=== PATIENT | male | born 1935 | race Caucasian/White ===

== ENCOUNTER 2022-09-16 14:37 | Inpatient (IN) ==
[2022-09-16] MEDS ORDERED: IOPAMIDOL 100 ML BOTTLE IV ONE (14:38)
--- NOTE | 2022-09-16 14:53 | Emergency Department Note ---
Abdominal Pain HPI General Chief Complaint: Abdominal Pain Stated Complaint: ab pain Time Seen by Provider: 09/16/22 14:42 Source: patient Mode of arrival: ambulatory Limitations: no limitations History of Present Illness HPI Narrative: Narrative: This is an 86-year-old male who presents to the emergency department for right upper quadrant abdominal pain. Patient states that the pain began about 1 AM. Patient states he is gotten this kind of pain before and it will usually last 15 to 20 minutes or he takes a bunch of Gaviscon and that will go away. This has not happened this time. He has also had nausea with it which she does not normally get. He states that it also is more over the right upper quadrant where normally its more in the middle of his upper abdomen. He states that he had ice cream at about 8:00 last night and his states that he had a peanut butter and jelly sandwich around 5 PM yesterday. He denies any vomiting or diarrhea. He states that he had a ultrasound many years ago where they told him he had "gravel in his gallbladder". Related Data Home Medications Medication Instructions Recorded Confirmed Saccharomyces boulardii [Daily PO BID 04/10/21 07/13/22 Probiotic (S. boulardii)] acetaminophen 650 mg 650 mg PO BID 04/10/21 07/13/22 tablet,extended release (Tylenol 8 Hour) cholecalciferol (vitamin D3) 25 25 mcg PO QDAY 04/10/21 07/13/22 mcg (1,000 unit) capsule cranberry extract 650 mg capsule 650 mg PO QDAY 04/10/21 07/13/22 multivitamin (Multiple Vitamins 1 tab PO QDAY 04/10/21 07/13/22 tablet) saw palmetto 450 mg capsule 450 mg PO QDAY 04/10/21 07/13/22 vit C-E-zinc spe-[id number]-[id number] PO QDAY 04/10/21 07/13/22 [Ocuvite Eye Health] calcium,magnesium,zinc,vitamin d3 PO BID 07/13/22 07/13/22 propylene glycol 0.6 % eye drops 1 drp ophthalmic (eye) QDAY PRN 07/13/22 07/13/22 (Systane Complete) Previous Rx's Medication Instructions Recorded fluticasone propionate 50 1 spray intranasal BID #16 grams 05/29/21 mcg/actuation nasal spray,suspension alendronate 70 mg tablet (Fosamax) 70 mg PO QWEEK #12 tabs 02/27/22 omeprazole 20 mg tablet,delayed 20 mg PO QDAY #90 tabs 03/08/22 release famotidine 40 mg tablet 40 mg PO BID #180 tabs 07/13/22 Allergies Allergy/AdvReac Type Severity Reaction Status Date / Time No Known Drug Allergies Allergy Verified 09/16/22 14:43 Review of Systems ROS ROS Narrative: Narrative: All systems ED: reviewed and negative except as stated. [facility] Narrative Patient History Narrative: Narrative: Medical/Surgical/Family History All Active Problems (Updated 09/16/22 @ 21:20 by Priya Parham PA-C) Acute cholecystitis (Acute) Elevated PSA (Chronic) Arthritis (Chronic) Acid reflux (Acute) Finger swelling (Acute) Foreign body (FB) in soft tissue (Acute) Hematuria (Acute) BPH (benign prostatic hyperplasia) (Chronic) Family history of prostate cancer (Chronic) Right shoulder pain (Acute) Bloating symptom (Acute) Medicare annual wellness visit, initial (Acute) SNHL (sensorineural hearing loss) (Acute) Full code status (Acute) Age related osteoporosis (Acute) Rising PSA level (Chronic) Medical History Acid reflux Age related osteoporosis Arthritis Bloating symptom Elevated PSA Foreign body (FB) in soft tissue Full code status Hematuria Medicare annual wellness visit, initial Right shoulder pain SNHL (sensorineural hearing loss) Surgical History History of bilateral knee replacement History of hernia repair Family History Mother Melanoma Sister Heart attack Social History Smoking Status: Never smoker Alcohol Intake Frequency: does not drink Substance Use: does not use Exam Narrative Narrative: Narrative: General Limitations: no limitations General appearance: Present alert, in no apparent distress, nontoxic and obese Head Head: Present atraumatic and normocephalic Eye Eye: Present normal appearance; Absent scleral icterus Chest Chest: Present symmetric chest wall rise Respiratory Respiratory: Absent respiratory distress Cardiovascular Cardiovascular: Present regular rate, normal rhythm and normal heart sounds Adbominal Abdominal: Present soft and tenderness (RUQ); Absent distention, guarding, rebound or rigidity Extremities Extremities: Present normal inspection and full ROM Neurological Neurological: Present alert, oriented X3 and normal gait Psychiatric Psychiatric: Present normal affect, normal mood and pleasant Skin Skin: Present warm (WNL) Course Vital Signs Vital signs: Vital Signs Temperature 97.6 F 09/16/22 14:40 Pulse Rate 64 09/16/22 14:40 Respiratory Rate 12 09/16/22 14:40 Blood Pressure 151/77 09/16/22 14:40 Pulse Oximetry (%) 93 09/16/22 14:40 Oxygen Delivery Method Room Air 09/16/22 14:40 Temperature 97.6 F 09/16/22 14:40 Pulse Rate 60 09/16/22 20:01 Respiratory Rate 24 H 09/16/22 19:10 Blood Pressure 110/63 09/16/22 20:31 Pulse Oximetry (%) 95 09/16/22 20:01 Oxygen Delivery Method Nasal Cannula 09/16/22 17:42 Oxygen Flow Rate (L/min) 2 09/16/22 17:42 [facility] MDM Narrative Medical decision making narrative: Narrative: This is an 86-year-old male who presents to the emergency department for evaluation of right upper quadrant pain. IV access was established for administration of fluids and medications. Labs were collected. His labs revealed a slightly elevated white blood cell count of 12.8 with a left shift. His lipase was 147, AST was 107, ALT 52, alk phos 117, direct bilirubin 0.4, lactic acid was elevated to 2.4. His troponin was less than 0.02 and his procalcitonin was 0.06 patient was then given a liter of fluids and an ultrasound was done. Ultrasound revealed cholelithiasis with some sludge but no signs of pericholecystic fluid or dilatation of the common bile duct. The gallbladder wall measured 3 mm in thickness. At this point I spoke with Dr. Myrick, who recommended a CT scan and that if that was okay he be more than happy to follow up with him in the office. I also did a repeat lactate at 1811 which increased to 3.6. Patient was given another liter of fluid and CT abdomen pelvis with contrast was done. This revealed multiple gallstones with gallbladder wall thickening pericholecystic edema suggestive of acute cholecystitis with question of a small volume of pericholecystic free fluid. There was no biliary duct dilatation or choledocholithiasis noted and the pancreas was unremarkable. A repeat of his lactate is pending. I respoke with Dr. Myrick who agreed to come in and evaluate the patient and discuss his options with him. Dr. Myrick met with the patient and will be admitting him to the hospital for a cholecystectomy. Sepsis Sepsis Identified: No Differential Diagnosis Differential Diagnosis: Cholecystitis, choledocholithiasis, pancreatitis, cholangitis, gastritis Medical Records Medical records reviewed: Yes I reviewed the patient's medical records. Lab Data Lab results reviewed: Yes I reviewed the patient's lab results. 09/16/22 15:20 Labs: Lab Results 09/16/22 09/16/22 09/16/22 Range/Units 15:20 15:20 15:20 WBC 12.8 H (4.5-11.0) K/mcL RBC 4.48 L (4.63-6.08) M/mcL Hgb 13.4 L (13.7-17.5) g/dL Hct 41.2 (40.1-51.0) % POC Hct (41-55) MCV 92.0 (80.0-100.0) fL MCH 29.9 (26.0-34.0) pg MCHC 32.5 (31.0-36.0) g/dL RDW 14.3 (11.5-14.5) % Plt Count 164 (140-440) K/mcL MPV 12.6 H (8.8-12.5) fL Immature Gran % (Auto) 0.5 (0.0-0.5) % Neut % (Auto) 90.0 H (38.0-78.0) % Lymph % (Auto) 4.8 L (15.5-49.0) % Pershing % (Auto) 4.5 (1.0-12.0) % Eos % (Auto) 0 (0.0-7.0) % Baso % (Auto) 0.2 (0.0-2.0) % Lymph # (Auto) 0.61 L (1.50-4.80) K/mcL Pershing # (Auto) 0.57 (0.10-0.90) K/mcL Eos # (Auto) 0 (0.00-0.70) K/mcL Baso # (Auto) 0.02 (0.00-0.30) K/mcL Immature Gran # 0.06 H (0.00-0.05) K/mcl Absolute Neutrophils 11.52 H (1.80-8.00) K/mcL POC VBG pH (7.32-7.42) POC VBG pCO2 at Temp (41-51) POC VBG pO2 (25-40) POC VBG HCO3 (24-28) POC VBG Total CO2 (25-29) POC Venous O2 Sat (40-70) POC VBG Base Excess (-2-2) VBG Lactic Acid (0.5-2) POC Sodium (133-145) POC Potassium (3.3-5.1) POC Chloride (96-108) POC Total CO2 (22-30) POC Anion Gap (8.0-16.0) POC BUN (6-20) POC Creatinine (0.6-1.2) POC Glucose (70-105) POC WB Ioniz Calcium (1.16-1.32) Total Bilirubin 0.8 (0.1-1.0) mg/dL Direct Bilirubin 0.4 H (<0.3) mg/dL AST 107 H (<40) U/L ALT 52 H (<40) U/L Alkaline Phosphatase 117 (39-117) U/L Total Protein 7.0 (5.9-8.4) gm/dL Albumin 3.8 (3.2-5.2) gm/dL Globulin 3.2 (2.2-3.7) gm/dL Lipase 147 H (7-60) U/L Procalcitonin 0.06 (<0.10) ng/mL POC Troponin I (0.00-0.08) 09/16/22 09/16/22 09/16/22 Range/Units 15:31 15:36 15:38 WBC (4.5-11.0) K/mcL RBC (4.63-6.08) M/mcL Hgb (13.7-17.5) g/dL Hct (40.1-51.0) % POC Hct 42.0 (41-55) MCV (80.0-100.0) fL MCH (26.0-34.0) pg MCHC (31.0-36.0) g/dL RDW (11.5-14.5) % Plt Count (140-440) K/mcL MPV (8.8-12.5) fL Immature Gran % (Auto) (0.0-0.5) % Neut % (Auto) (38.0-78.0) % Lymph % (Auto) (15.5-49.0) % Pershing % (Auto) (1.0-12.0) % Eos % (Auto) (0.0-7.0) % Baso % (Auto) (0.0-2.0) % Lymph # (Auto) (1.50-4.80) K/mcL Pershing # (Auto) (0.10-0.90) K/mcL Eos # (Auto) (0.00-0.70) K/mcL Baso # (Auto) (0.00-0.30) K/mcL Immature Gran # (0.00-0.05) K/mcl Absolute Neutrophils (1.80-8.00) K/mcL POC VBG pH 7.44 H (7.32-7.42) POC VBG pCO2 at Temp 33.7 L (41-51) POC VBG pO2 36 (25-40) POC VBG HCO3 22.7 L (24-28) POC VBG Total CO2 24.0 L (25-29) POC Venous O2 Sat 72.0 H (40-70) POC VBG Base Excess -1.0 (-2-2) VBG Lactic Acid 2.4 H (0.5-2) POC Sodium 138 (133-145) POC Potassium 3.9 (3.3-5.1) POC Chloride 101 (96-108) POC Total CO2 23.0 (22-30) POC Anion Gap 19.0 H (8.0-16.0) POC BUN 20 (6-20) POC Creatinine 0.8 (0.6-1.2) POC Glucose 147 H (70-105) POC WB Ioniz Calcium 1.13 L (1.16-1.32) Total Bilirubin (0.1-1.0) mg/dL Direct Bilirubin (<0.3) mg/dL AST (<40) U/L ALT (<40) U/L Alkaline Phosphatase (39-117) U/L Total Protein (5.9-8.4) gm/dL Albumin (3.2-5.2) gm/dL Globulin (2.2-3.7) gm/dL Lipase (7-60) U/L Procalcitonin (<0.10) ng/mL POC Troponin I < 0.02 (0.00-0.08) 09/16/22 Range/Units 18:12 WBC (4.5-11.0) K/mcL RBC (4.63-6.08) M/mcL Hgb (13.7-17.5) g/dL Hct (40.1-51.0) % POC Hct (41-55) MCV (80.0-100.0) fL MCH (26.0-34.0) pg MCHC (31.0-36.0) g/dL RDW (11.5-14.5) % Plt Count (140-440) K/mcL MPV (8.8-12.5) fL Immature Gran % (Auto) (0.0-0.5) % Neut % (Auto) (38.0-78.0) % Lymph % (Auto) (15.5-49.0) % Pershing % (Auto) (1.0-12.0) % Eos % (Auto) (0.0-7.0) % Baso % (Auto) (0.0-2.0) % Lymph # (Auto) (1.50-4.80) K/mcL Pershing # (Auto) (0.10-0.90) K/mcL Eos # (Auto) (0.00-0.70) K/mcL Baso # (Auto) (0.00-0.30) K/mcL Immature Gran # (0.00-0.05) K/mcl Absolute Neutrophils (1.80-8.00) K/mcL POC VBG pH 7.43 H (7.32-7.42) POC VBG pCO2 at Temp 30.9 L (41-51) POC VBG pO2 42 H (25-40) POC VBG HCO3 20.4 L (24-28) POC VBG Total CO2 21.0 L (25-29) POC Venous O2 Sat 80.0 H (40-70) POC VBG Base Excess -4.0 L (-2-2) VBG Lactic Acid 3.6 H (0.5-2) POC Sodium (133-145) POC Potassium (3.3-5.1) POC Chloride (96-108) POC Total CO2 (22-30) POC Anion Gap (8.0-16.0) POC BUN (6-20) POC Creatinine (0.6-1.2) POC Glucose (70-105) POC WB Ioniz Calcium (1.16-1.32) Total Bilirubin (0.1-1.0) mg/dL Direct Bilirubin (<0.3) mg/dL AST (<40) U/L ALT (<40) U/L Alkaline Phosphatase (39-117) U/L Total Protein (5.9-8.4) gm/dL Albumin (3.2-5.2) gm/dL Globulin (2.2-3.7) gm/dL Lipase (7-60) U/L Procalcitonin (<0.10) ng/mL POC Troponin I (0.00-0.08) Radiology Data Radiology results reviewed: Yes I reviewed the patient's radiology results. Radiology results narrative: [facility] NAME: Bryant Mesa [address] [place] [address] : 1935 [address] Service Date: 09/16/22 Report # [id number] [place] [address] Trino Garnett M.D. MR #: [id number] Ultrasound Report Signed Ordering Physician:Priya Parham PA-C Date of Service:09/16/22 Procedure(s):US abdomen limited History: Right upper quadrant pain FINDINGS: Patient was difficult to scan due to inability to hold her breath and moderate amount of bowel gas. The visualized portion liver is normal in size and homogeneous. There is no mass or evidence of fatty and fixation. Doppler shows normal blood flow in the hepatic and portal veins. The pancreas is obscured. The gallbladder contains numerous small stones and sludge. Most of stones appear noncalcified. There may be some small polyps as well. The wall measures 3 mm in thickness. The patient was nontender while scanning over the gallbladder. No pericholecystic fluid collection is present. Common bile duct is 6.2 mm which is is within normal limits. There is no mass is present. IMPRESSION: Cholelithiasis Priya Parham was called with the report. Interpreted and Authenticated by: Trino Garnett 09/16/22 24 28 Steam Oven Operator: <Electronically signed by Trino Garnett M.D. in OV> 09/16/22 1730 CC: Priya Parham PA-C; Trino Garnett M.D.; Anastacio Figueredo M.D.~ CT abdomen and pelvis with contrast revealed multiple gallstones gallbladder wall thickening and. Cholecystic edema suggestive suggestive of acute cholecystitis there is question of a small volume of pericholecystic free fluid no biliary duct dilatation or choledocholithiasis pancreas is unremarkable. EKG Data EKG #1: EKG attestation: Yes I reviewed and interpreted this EKG. EKG results narrative: with Dr. Pina EKG shows normal: sinus rhythm Rate: normal [place]/QRS: right axis deviation and RBBB Heart block present: RBBB ST segment elevation in: None ST segment depression in: None T wave inversions noted in: None QTc: normal When compared to previous EKG there are: previous EKG unavailable Interpretation: no acute changes Pulse Oximetry Data Pulse Ox %: 95 Interpretation: O2 saturation is 95% on room air. Patient does not show any signs of hypoxia. Discharge Plan Patient/Caregiver Discharge Instructions Pt seen by CAMPUS MANAGER/PA only: Yes Clinical Impression: Acute cholecystitis Patient Disposition: Xfer As Inpt ([facility]) Follow up with: Anastacio Figueredo MD [Primary Care Provider] - Prescriptions: No Action alendronate [Fosamax] 70 mg tablet 70 mg PO QWEEK Qty: 12 2RF omeprazole 20 mg tablet,delayed release (DR/EC) 20 mg PO QDAY Qty: 90 2RF Hold Instructions: Doctor's Order acetaminophen [Tylenol 8 Hour] 650 mg tablet extended release 650 mg PO BID multivitamin [Multiple Vitamins] Tablet 1 tab PO QDAY cholecalciferol (vitamin D3) 25 mcg (1,000 unit) capsule 25 mcg PO QDAY cranberry extract 650 mg capsule 650 mg PO QDAY Rx Instructions: administer with a meal Saccharomyces boulardii [Daily Probiotic (S. boulardii)] PO BID saw palmetto 450 mg capsule 450 mg PO QDAY Rx Instructions: give with food (meal/snack) vit C-E-zinc [id number] [Ocuvite Eye Health] PO QDAY Systane Complete 0.6 % drops 1 drp ophthalmic (eye) QDAY PRN calcium,magnesium,zinc,vitamin d3 PO BID famotidine 40 mg tablet 40 mg PO BID Qty: 180 1RF fluticasone propionate 50 mcg/actuation spray,suspension 1 spray intranasal BID Qty: 16 2RF Rx Instructions: administer into each nostril
[2022-09-16] MEDS ORDERED: morphine 2 MG/ML VIAL IV PRN (14:54)
[2022-09-16] MEDS ORDERED: 0.9 % SODIUM CHLORIDE 1,000 ML IV ONE ×2 (14:54→18:19)
[2022-09-16] MEDS ORDERED: ONDANSETRON 4 MG/2 ML VIAL IV ONE (14:54)
[2022-09-16 15:49] LABS: POC Calcium, Ionized 1.13 (1.16-1.32); POC Creatinine 0.8 (0.6-1.2); POC Potassium 3.9 (3.3-5.1)
[2022-09-16 15:53] LABS: Basophils # (Auto) 0.02 K/mcL (0.00-0.30); Basophils % (Auto) 0.2 % (0.0-2.0); Eosinophils # (Auto) 0 K/mcL (0.00-0.70); Eosinophils % (Auto) 0 % (0.0-7.0); Hematocrit 41.2 % (40.1-51.0); Hemoglobin 13.4 g/dL (13.7-17.5); Lymphocytes # (Auto) 0.61 K/mcL (1.50-4.80); Lymphocytes % (Auto) 4.8 % (15.5-49.0); Mean Corpuscular HGB Conc 32.5 g/dL (31.0-36.0); Mean Platelet Volume 12.6 fL (8.8-12.5); Monocytes # (Auto) 0.57 K/mcL (0.10-0.90); Monocytes % (Auto) 4.5 % (1.0-12.0); Platelet Count 164 K/mcL (140-440); RBC 4.48 M/mcL (4.63-6.08); Red Cell Distribution Width 14.3 % (11.5-14.5); WBC 12.8 K/mcL (4.5-11.0)
[2022-09-16 16:18] LABS: ALT/SGPT 52 U/L (<40); AST/SGOT 107 U/L (<40); Albumin 3.8 gm/dL (3.2-5.2); Alkaline Phosphatase 117 U/L (39-117); Bilirubin,Direct 0.4 mg/dL (<0.3); Bilirubin,Total 0.8 mg/dL (0.1-1.0); Globulin 3.2 gm/dL (2.2-3.7)
--- NOTE | 2022-09-16 17:34 | Ultrasound Report ---
History: Right upper quadrant pain FINDINGS: Patient was difficult to scan due to inability to hold her breath and moderate amount of bowel gas. The visualized portion liver is normal in size and homogeneous. There is no mass or evidence of fatty and fixation. Doppler shows normal blood flow in the hepatic and portal veins. The pancreas is obscured. The gallbladder contains numerous small stones and sludge. Most of stones appear noncalcified. There may be some small polyps as well. The wall measures 3 mm in thickness. The patient was nontender while scanning over the gallbladder. No pericholecystic fluid collection is present. Common bile duct is 6.2 mm which is is within normal limits. There is no mass is present. IMPRESSION: Cholelithiasis Priya Parham was called with the report. Interpreted and Authenticated by: Trino Garnett 09/16/22
[2022-09-16] MEDS ORDERED: ONDANSETRON 4 MG/2 ML VIAL IV PRN (21:55)
--- NOTE | 2022-09-16 22:26 | General Surgery Consult Note ---
HPI Date of Consult Consult Date: 09/16/22 Requesting physician: Carlos Pina Primary Care Provider: Anastacio Figueredo MD Consult Narrative Patient Information: Note initiated : 09/16/22 at 10:09 pm Service Date, if different from initiated Date: [] Patient: Bryant Mesa 86 y/o M admitted on . Chief Complaint: [] Mr Mesa is seen in consultation today after recurrence of ongoing RUQ Pain that has been intermittent for several years at least now related to known gallston es. The pain often comes on in the middle of the night and this time did not improve as it typically does. He has had prior Inguinal Hernia Repairs but no other abdominal surgery. He is not on any oral anticoagulants and denies any known cardiac issues. He is not on home oxygen and denies any significant pulmonary issues. An US was done here which showed probable stones but no findings of Cholecystitis but follow up CT demonstrated possible wall thickening and surrounding edema. Lipase was mildly elevated as is his White Blood Cell Count. He is accompanied by his family. Chief complaint: RUQ Pain Reason for consult: Biliary Colic cc:: CC: Review of Systems All systems: reviewed and no additional remarkable complaints except as stated Constitutional Additional comments: no recent changes EENT Additional comments: no ENT changes Cardiovascular Additional comments: no significant known cardiac issues Respiratory Additional comments: no cough or SOB Gastrointestinal Additional comments: see HPI Genitourinary Additional comments: no changes Integumentary Additional comments: no changes Neurological Additional comments: no changes Hematologic/Lymphatic Additional comments: no bleeding issues PFSH PFSH All Active Problems (Updated 09/16/22 @ 22:19 by Warren Myrick MD) Biliary colic (Acute) Acute cholecystitis (Acute) Elevated PSA (Chronic) Arthritis (Chronic) Acid reflux (Acute) Finger swelling (Acute) Foreign body (FB) in soft tissue (Acute) Hematuria (Acute) BPH (benign prostatic hyperplasia) (Chronic) Family history of prostate cancer (Chronic) Right shoulder pain (Acute) Bloating symptom (Acute) Medicare annual wellness visit, initial (Acute) SNHL (sensorineural hearing loss) (Acute) Full code status (Acute) Age related osteoporosis (Acute) Rising PSA level (Chronic) Medical History Acid reflux Age related osteoporosis Arthritis Bloating symptom Elevated PSA Foreign body (FB) in soft tissue Full code status Hematuria Medicare annual wellness visit, initial Right shoulder pain SNHL (sensorineural hearing loss) Surgical History History of bilateral knee replacement History of hernia repair Family History Mother Melanoma Sister Heart attack Social History marital status: occupational status: retired smoking status: Never smoker alcohol intake frequency: does not drink substance use type: does not use MEDS/ALLERGIES Home Medications and Allergies Home Medications Medication Instructions Recorded Confirmed Type Saccharomyces boulardii [Daily PO BID 04/10/21 07/13/22 History Probiotic (S. boulardii)] acetaminophen 650 mg 650 mg PO BID 04/10/21 07/13/22 History tablet,extended release (Tylenol 8 Hour) cholecalciferol (vitamin D3) 25 25 mcg PO QDAY 04/10/21 07/13/22 History mcg (1,000 unit) capsule cranberry extract 650 mg capsule 650 mg PO QDAY 04/10/21 07/13/22 History multivitamin (Multiple Vitamins 1 tab PO QDAY 04/10/21 07/13/22 History tablet) saw palmetto 450 mg capsule 450 mg PO QDAY 04/10/21 07/13/22 History vit C-E-zinc [id number] PO QDAY 04/10/21 07/13/22 History [[facility]] fluticasone propionate 50 1 spray intranasal BID #16 grams 05/29/21 07/13/22 Rx mcg/actuation nasal spray,suspension alendronate 70 mg tablet (Fosamax) 70 mg PO QWEEK #12 tabs 02/27/22 07/13/22 Rx omeprazole 20 mg tablet,delayed 20 mg PO QDAY #90 tabs 03/08/22 07/13/22 Rx release calcium,magnesium,zinc,vitamin d3 PO BID 07/13/22 07/13/22 History famotidine 40 mg tablet 40 mg PO BID #180 tabs 07/13/22 07/13/22 Rx propylene glycol 0.6 % eye drops 1 drp ophthalmic (eye) QDAY PRN 07/13/22 07/13/22 History (Systane Complete) Allergies Allergy/AdvReac Type Severity Reaction Status Date / Time No Known Drug Allergies Allergy Verified 09/16/22 14:43 Physical Examination Vital Signs Vital signs: Temp Pulse Resp BP Pulse Ox O2 Del Method O2 Flow Rate 97.6 F 67 23 H 103/57 95 Nasal Cannula 2 09/16/22 14:40 09/16/22 22:01 09/16/22 22:01 09/16/22 22:01 09/16/22 22:01 09/16/22 17:42 09/16/22 17:42 General physical appearance General physical exam: other (looks well, fully conversant, non toxic ) Eyes Eye exam: normal ocular movement; negative icteric ENT ENT exam: other (normal facial exam ) Head Head exam IM: Present atraumatic, normal inspection and normocephalic Neck Neck exam: trachea midline and no lymphadenopathy Cardiovascular Cardiovascular exam IM: Present normal rate and rhythm Respiratory Respiratory exam: normal respiratory effort Abdomen Abdomen: Present soft (soft and non distended, mildly tender in the RUQ without guarding, no mass and remainder of abdominal exam is normal ) Integumentary Integumentary: Present other (normal appearing intact skin ) Neurologic Neurologic: Present other (grossly intact ) Psychiatric Psychiatric: Present oriented to time, oriented to person and oriented to place Results Labs 09/16/22 15:20 Labs: Abnormal lab results 09/16/22 09/16/22 09/16/22 Range/Units 15:20 15:20 15:31 WBC 12.8 H (4.5-11.0) K/mcL RBC 4.48 L (4.63-6.08) M/mcL Hgb 13.4 L (13.7-17.5) g/dL MPV 12.6 H (8.8-12.5) fL Neut % (Auto) 90.0 H (38.0-78.0) % Lymph % (Auto) 4.8 L (15.5-49.0) % Lymph # (Auto) 0.61 L (1.50-4.80) K/mcL Immature Gran # 0.06 H (0.00-0.05) K/mcl Absolute Neutrophils 11.52 H (1.80-8.00) K/mcL POC VBG pH 7.44 H (7.32-7.42) POC VBG pCO2 at Temp 33.7 L (41-51) POC VBG pO2 (25-40) POC VBG HCO3 22.7 L (24-28) POC VBG Total CO2 24.0 L (25-29) POC Venous O2 Sat 72.0 H (40-70) POC VBG Base Excess (-2-2) VBG Lactic Acid 2.4 H (0.5-2) POC Anion Gap (8.0-16.0) POC Glucose (70-105) POC WB Ioniz Calcium (1.16-1.32) Direct Bilirubin 0.4 H (<0.3) mg/dL AST 107 H (<40) U/L ALT 52 H (<40) U/L Lipase 147 H (7-60) U/L 09/16/22 09/16/22 Range/Units 15:36 18:12 WBC (4.5-11.0) K/mcL RBC (4.63-6.08) M/mcL Hgb (13.7-17.5) g/dL MPV (8.8-12.5) fL Neut % (Auto) (38.0-78.0) % Lymph % (Auto) (15.5-49.0) % Lymph # (Auto) (1.50-4.80) K/mcL Immature Gran # (0.00-0.05) K/mcl Absolute Neutrophils (1.80-8.00) K/mcL POC VBG pH 7.43 H (7.32-7.42) POC VBG pCO2 at Temp 30.9 L (41-51) POC VBG pO2 42 H (25-40) POC VBG HCO3 20.4 L (24-28) POC VBG Total CO2 21.0 L (25-29) POC Venous O2 Sat 80.0 H (40-70) POC VBG Base Excess -4.0 L (-2-2) VBG Lactic Acid 3.6 H (0.5-2) POC Anion Gap 19.0 H (8.0-16.0) POC Glucose 147 H (70-105) POC WB Ioniz Calcium 1.13 L (1.16-1.32) Direct Bilirubin (<0.3) mg/dL AST (<40) U/L ALT (<40) U/L Lipase (7-60) U/L Diabetes panel 09/16/22 Range/Units 15:20 AST 107 H (<40) U/L ALT 52 H (<40) U/L Alkaline Phosphatase 117 (39-117) U/L Total Protein 7.0 (5.9-8.4) gm/dL Albumin 3.8 (3.2-5.2) gm/dL Calcium panel 09/16/22 Range/Units 15:20 Albumin 3.8 (3.2-5.2) gm/dL Adrenal panel 09/16/22 Range/Units 15:20 Total Bilirubin 0.8 (0.1-1.0) mg/dL AST 107 H (<40) U/L ALT 52 H (<40) U/L Alkaline Phosphatase 117 (39-117) U/L Total Protein 7.0 (5.9-8.4) gm/dL Albumin 3.8 (3.2-5.2) gm/dL All other labs normal. A/P Assessment and plan (1) Biliary colic: Assessment and plan: Symptomatic Cholelithiasis and possible evolving Cholecystitis Agree with admission for IV ABs, pain meds and close observational management. Options are discussed and reviewed with he and family at length and r ecommendation for admission rather than going home is also discussed He may end up needing operative intervention on this admission and this is discussed at length with he and his family. Will re check labs in the AM and make sure there is no evolving evidence of pancreatitis or biliary obstruction Status: Acute Time Spent With Patient Time: Total time spent is greater than 50% in coordination of care (as documented) at patient's floor/unit and/or counseling patient:
[2022-09-16] MEDS: DEXTROSE 5%-1/2NS W/20MEQ KCL 1,000 ML IV SCH (22:54)
[2022-09-16] MEDS: PIPERACILLIN SODIUM/TAZOBACTAM 3.375 GM in DEXTROSE 5% IN WATER 50 ML IV SCH (23:01)
[2022-09-16] MEDS: PANTOPRAZOLE 40 MG VIAL IV SCH (23:50)
[2022-09-17] MEDS: PIPERACILLIN SODIUM/TAZOBACTAM 3.375 GM in DEXTROSE 5% IN WATER 50 ML IV SCH ×3 (05:28→17:25)
--- NOTE | 2022-09-17 05:50 | Cat Scan Report ---
CLINICAL INFORMATION: Right upper quadrant pain. COMPARISON: None. TECHNIQUE: Following enteric contrast, 80 cc of Isovue-370 were injected intravenously, and 60 seconds later, 0.625 mm helical slices were obtained from the mid heart through the subtrochanteric regions. Following reconstruction, 2.5 mm sagittal, coronal and axial reformatted images were processed and reviewed at bone, lung and soft tissue windows. Five minutes later, 0.625 mm helical slices were obtained from the mid heart through the kidneys and viewed at soft tissue windows.The exam was performed using radiation dose optimization techniques including, but not limited to, automated exposure control, adjustment of the mA and/or kV according to patient size and use of iterative reconstruction technique. FINDINGS: The lung bases show moderate patchy infiltrate and/or atelectasis in the posterior lower lobes. There are no effusions. The visualized heart is mildly enlarged and extremely heavy fibrofatty calcific plaque in the coronary arteries particularly the LAD. Moderate hiatal hernia consists of the gastric fundus and proximal gastric body. Abdominal images show mild fatty change of the liver. The gallbladder is mildly enlarged with diffuse wall thickening, pericholecystic fluid and multiple stones compatible with cholecystitis. Intrahepatic and common bile ducts are normal caliber CBD is 6 mm. A small periampullary diverticula is appreciated. Both kidneys, adrenal glands, spleen, and pancreas are normal in size configuration and attenuation without focal lesion. The abdominal aorta is normal diameter with scattered plaque. 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 SMA, RUTH, both renal, iliac arteries contain plaque but no stenoses. Pelvic images show moderate prostate enlargement with a transverse dimension of 5.3 cm. Scattered prostate calcifications appreciated. There is mild wall thickening urinary bladder is suggesting chronic bladder outlet narrowing. Seminal vesicles are normal. Multiple sigmoid diverticuli appreciated no evidence of diverticulitis. The remaining colon, medial pericecal appendix and small bowel are normal. There is no free air, free fluid or adenopathy. Bone windows show moderate degeneration lumbar spine. No focal osseous lesions. IMPRESSION: 1. Cholecystitis. 2. Moderate hiatal hernia. 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 Patient is at risk for median arcuate ligament syndrome. The correlate with chronic intermittent postprandial epigastric pain and nausea Interpreted and Authenticated by: Driss Fritz 09/17/22
[2022-09-17 07:04] LABS: Hematocrit 37.3 % (40.1-51.0); Hemoglobin 12.1 g/dL (13.7-17.5); Mean Cell Volume 90.8 fL (80.0-100.0); Mean Corpuscular HGB Conc 32.4 g/dL (31.0-36.0); Mean Platelet Volume 11.8 fL (8.8-12.5); Platelet Count 188 K/mcL (140-440); RBC 4.11 M/mcL (4.63-6.08); Red Cell Distribution Width 14.8 % (11.5-14.5)
[2022-09-17 07:07] LABS: Amylase 74 U/L (28-100)
[2022-09-17 07:12] LABS: ALT/SGPT 495 U/L (<40); AST/SGOT 582 U/L (<40); Albumin 3.2 gm/dL (3.2-5.2); Albumin/Globulin Ratio 1.1 (1.0-2.3); Alkaline Phosphatase 208 U/L (39-117); Bilirubin,Total 3.4 mg/dL (0.1-1.0); Blood Urea Nitrogen 25 mg/dL (8-23); Calcium 8.1 mg/dL (8.6-10.4); Carbon Dioxide 21 mmol/L (22-30); Chloride 102 mmol/L (96-108); Glomerular Filtration Rate 59; Glucose 135 mg/dL (70-105)
[2022-09-17] MEDS: PANTOPRAZOLE 40 MG VIAL IV SCH ×2 (08:54→17:24)
[2022-09-17] MEDS: DEXTROSE 5%-1/2NS W/20MEQ KCL 1,000 ML IV SCH ×2 (08:55→21:43)
--- NOTE | 2022-09-17 11:30 | General Surgery Progress Note ---
SUBJECTIVE Subjective Patient information: Note initiated : 09/17/22 at 11:24 am Service Date, if different from initiated Date: [] Patient: Bryant Mesa 86 y/o M admitted on 09/16/22. Chief Complaint: [] Resting comfortably but denies much in the way of pain Constitutional Vitals: Vital Signs Temp Pulse Resp BP Pulse Ox O2 Del Method O2 Flow Rate 99.0 F 60 16 105/59 93 Room Air 2 09/17/22 07:58 09/17/22 07:58 09/17/22 07:58 09/17/22 07:58 09/17/22 07:58 09/17/22 07:58 09/16/22 22:31 Period Temp Pulse Resp BP Sys/Madrigal Pulse Ox O2 Del Method O2 Flow Rate Last 24 Hr 97.6 F-99.0 F 57-80 12-27 98-167/50-151 88-100 Nasal Cannula- Room Air 2-2 Intake and Output 09/16/22 09/17/22 09/17/22 19:59 03:59 11:59 Intake Total 1000 1250 1050 Output Total 200 Balance 1000 1050 1050 Weight 167 lb 168 lb 14.4 oz Intake & Output: Intake & Output 09/16/22 09/17/22 09/17/22 19:59 03:59 11:59 Intake Total 1000 1250 1050 Output Total 200 Balance 1000 1050 1050 Weight 167 lb 168 lb 14.4 oz Intake: IV 1000 1050 1050 Sodium Chloride 0.9% 1,000 ml @ 1000 1000 Wide Open IV [facility] Rx#: [id number] Dextrose 5%-1/2Ns W/20Meq KCl 1 1000 ,000 ml @ 100 mls/hr IV .Q10H [facility] Rx#:[id number] Zosyn 3.375 gm In Dextrose 5% 50 50 in Water 50 ml @ 100 mls/hr IV Q6H [facility] Rx#:[id number] Oral 200 0 Output: Void Amount 200 Other: Urine Appearance Clear Urine Color Minerva Exam: looks non toxic, fully conversant, NAD Respiratory Respiratory exam: Present normal respiratory exam Cardiovascular Cardiovascular exam: Present normal rate and rhythm GI/Abdominal Additional comments: soft and non distended, localized tenderness without guarding in the RUQ Extremities Exam Additional comments: appear well perfused A/P Assessment and plan (1) Acute cholecystitis: Assessment and plan: 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 LFTs and Obstructive Enzymes are elevated this am - will check MRCP to see if any evidence of retained Common Duct Stone and/or Pancreatitis Assuming the MRI shows only Severe Cholecystitis we'll plan to proceed to the OR later today or tomorrow for Surgery which will very likely be a Partial or Subtotal Cholecystectomy for Severe Cholecystitis Issues are reviewed and discussed with both he and his this morning and they have a good understanding of our plan Status: Acute Time Spent With Patient Time: Total time spent is greater than 50% in coordination of care (as documented) at patient's floor/unit and/or counseling patient:
--- NOTE | 2022-09-17 16:12 | Magnetic Resonance Report ---
CLINICAL INFORMATION: Cholecystitis evaluate for choledocholithiasis COMPARISON: Abdomen and pelvic CT 09/16/2022 TECHNIQUE: MRCP was performed using 3D FRFSE respiratory triggered and single-shot FSE thick slab technique. Axial T2 SSFSE and coronal SSFSE images were obtained through the upper abdomen as well. FINDINGS: The gallbladder is mildly enlarged with moderate diffuse wall thickening, pericholecystic fluid multiple stones. The intrahepatic, common hepatic and common bile ducts are normal caliber. CBD is 4 mm. Pancreatic duct is also normal diameter 2 mm. No evidence of choledocholithiasis. Moderate artifact present on ERCP image however the axial images are optimized. The liver, both kidneys, adrenal glands, spleen, pancreas and aorta are normal in size, figuration and signal intensity without focal lesion. There is no free air, free fluid or adenopathy. Large hiatal hernia consisting of the gastric fundus and body which has undergone organoaxial volvulus, seen as before. IMPRESSION: 1. Cholecystitis. Intrahepatic common bile pancreatic ducts are normal dose of choledocholithiasis. 2. Large hiatal hernia Interpreted and Authenticated by: Driss Fritz 09/17/22
[2022-09-18] MEDS: PIPERACILLIN SODIUM/TAZOBACTAM 3.375 GM in DEXTROSE 5% IN WATER 50 ML IV SCH ×4 (00:08→18:55)
[2022-09-18] MEDS ORDERED: INDOCYANINE GREEN 25 MG VIAL IV ONE (06:00)
[2022-09-18] MEDS ORDERED: LIDOCAINE HCL/PF 100 MG/5 ML SYRINGE IV ONE (07:30)
[2022-09-18] MEDS ORDERED: DEXAMETHASONE 10 MG/ML VIAL ONE (07:30)
[2022-09-18] MEDS ORDERED: PROPOFOL 200 MG/20 ML VIAL IV ONE (07:30)
[2022-09-18] MEDS ORDERED: fentaNYL 100 MCG/2 ML VIAL IV ONE (07:30)
[2022-09-18] MEDS ORDERED: ONDANSETRON 4 MG/2 ML VIAL ONE (07:30)
[2022-09-18] MEDS ORDERED: ROCURONIUM 10 MG/ML ML IV ONE (07:30)
[2022-09-18] MEDS ORDERED: HYDROmorphone 1 MG/ML SYRINGE ONE (07:30)
[2022-09-18] MEDS ORDERED: GLYCOPYRROLATE 0.2 MG/ML VIAL IV ONE (07:30)
[2022-09-18] MEDS ORDERED: ePHEDrine 50 MG/5 ML SYRINGE (ANEST) IV ONE (07:30)
[2022-09-18] MEDS ORDERED: SUGAMMADEX SODIUM 200 MG/2 ML VIAL IV ONE (07:30)
[2022-09-18] MEDS: DEXTROSE 5%-1/2NS W/20MEQ KCL 1,000 ML IV SCH ×3 (07:43→21:32)
[2022-09-18] MEDS ORDERED: BUPIVACAINE W/EPI 0.25% 50 ML VIAL IJ ONE (08:00)
[2022-09-18] MEDS: PANTOPRAZOLE 40 MG VIAL IV SCH ×2 (12:21→18:55)
[2022-09-18] MEDS: HYDROmorphone 0.5 MG/0.5 ML SYRINGE IV PRN ×2 (13:25→19:47)
--- NOTE | 2022-09-18 14:46 | General Surgery Progress Note ---
SUBJECTIVE Subjective Patient information: Note initiated : 09/18/22 at 7am Service Date, if different from initiated Date: [] Patient: Bryant Mesa 86 y/o M admitted on 09/16/22. Chief Complaint: [] Continues to have pain, plans for surgery later on this morning - questions and concerns are discussed and addressed Constitutional Vitals: Vital Signs Temp Pulse Resp BP Pulse Ox O2 Del Method O2 Flow Rate 97.7 F 57 L 12 153/83 90 Nasal Cannula 1 09/18/22 10:27 09/18/22 12:39 09/18/22 10:27 09/18/22 12:39 09/18/22 12:39 09/18/22 12:39 09/18/22 12:39 Period Temp Pulse Resp BP Sys/Madrigal Pulse Ox O2 Del Method O2 Flow Rate Last 24 Hr 97.7 F-100.4 F 55-71 12-19 106-162/49-87 88-93 Nasal Cannula- Room Air 1-5 Intake and Output 09/18/22 09/18/22 09/18/22 03:59 11:59 19:59 Intake Total 250 2450 Output Total 250 325 525 Balance 0 2125 -525 Weight 172 lb 6.4 oz Intake & Output: Intake & Output 09/18/22 09/18/22 09/18/22 03:59 11:59 19:59 Intake Total 250 2450 Output Total 250 325 525 Balance 0 2125 -525 Weight 172 lb 6.4 oz Intake: IV 50 1050 Dextrose 5%-1/2Ns W/20Meq KCl 1 1000 ,000 ml @ 100 mls/hr IV .Q10H [facility] Rx#:[id number] Zosyn 3.375 gm In Dextrose 5% 50 50 in Water 50 ml @ 100 mls/hr IV Q6H [facility] Rx#:[id number] Oral 200 0 IV - Manual Only 1400 Output: Drainage 25 Right RADHA Drain 25 Void Amount 250 300 525 Other: Urine Appearance Clear Clear Urine Color Bright Yellow Dark Yellow Urine Odor Strong Exam: looks non toxic, NAD Respiratory Respiratory exam: Present normal respiratory exam Cardiovascular Cardiovascular exam: Present normal rate and rhythm GI/Abdominal Additional comments: soft and non distended, TTP RUQ, no mass Extremities Exam Additional comments: well perfused A/P Assessment and plan (1) Acute cholecystitis: Assessment and plan: Acute Cholecystitis To the OR later on this AM for Laparoscopic Cholecystectomy Risks, benefits, potential complications and alternative treatment options are all reviewed and discussed at length and he wishes to proceed Status: Acute Time Spent With Patient Time: Total time spent is greater than 50% in coordination of care (as documented) at patient's floor/unit and/or counseling patient:
--- NOTE | 2022-09-18 15:16 | Brief Operative Note ---
Brief Operative Note Date of procedure: 09/18/22 Pre-op diagnosis: Acute Cholecystitis Post-op diagnosis: same Procedure: Laparoscopic Cholecystectomy Grafts/Implants: No Anesthesia: GETA Findings: Markedly inflamed gallbladder severe surrounding edema - no evidence of necrosis, gangrenous change or perforation and no unexpected findings Complications: none Surgeon: Warren Myrick Estimated blood loss (cc): 10 Specimens Removed/Pathology: other (gallbladder ) Condition: stable Disposition: PACU
[2022-09-19] MEDS: DEXTROSE 5%-1/2NS W/20MEQ KCL 1,000 ML IV SCH ×4 (00:19→22:03)
[2022-09-19] MEDS: PIPERACILLIN SODIUM/TAZOBACTAM 3.375 GM in DEXTROSE 5% IN WATER 50 ML IV SCH ×5 (00:19→23:49)
[2022-09-19] MEDS: HYDROmorphone 0.5 MG/0.5 ML SYRINGE IV PRN (06:07)
[2022-09-19] MEDS: PANTOPRAZOLE 40 MG VIAL IV SCH ×2 (07:38→18:05)
[2022-09-19] MEDS ORDERED: HYDROcodone/APAP 5/325MG TABLET PO PRN (13:38)
--- NOTE | 2022-09-19 15:21 | General Surgery Progress Note ---
SUBJECTIVE Subjective Patient information: Note initiated : 09/19/22 at 2:58 pm Service Date, if different from initiated Date: [] Patient: Bryant Mesa 86 y/o M admitted on 09/18/22. Chief Complaint: chatting with family, feels well, passing gas, some pain [] Constitutional Vitals: Vital Signs Temp Pulse Resp BP Pulse Ox O2 Del Method O2 Flow Rate 98.0 F 57 L 18 106/60 99 Room Air 1 09/19/22 12:00 09/19/22 12:00 09/19/22 12:00 09/19/22 12:00 09/19/22 12:00 09/19/22 12:00 09/18/22 16:00 Period Temp Pulse Resp BP Sys/Madrigal Pulse Ox O2 Del Method O2 Flow Rate Last 24 Hr 96.6 F-98.4 F 50-66 18-18 106-144/55-76 93-99 Nasal Cannula- Room Air 1 Intake and Output 09/19/22 09/19/22 09/19/22 03:59 11:59 19:59 Intake Total 50 1540 525 Output Total 615 535 Balance -565 1005 525 Weight 176 lb 4.8 oz Intake & Output: Intake & Output 09/19/22 09/19/22 09/19/22 03:59 11:59 19:59 Intake Total 50 1540 525 Output Total 615 535 Balance -565 1005 525 Weight 176 lb 4.8 oz Intake: IV 50 1100 525 Dextrose 5%-1/2Ns W/20Meq KCl 1 1000 525 ,000 ml @ 100 mls/hr IV .Q10H [facility] Rx#:[id number] Zosyn 3.375 gm In Dextrose 5% 50 100 in Water 50 ml @ 100 mls/hr IV Q6H [facility] Rx#:[id number] Oral 440 Output: Drainage 40 35 Right RADHA Drain 40 35 Void Amount 575 500 Other: Urine Appearance Clear Clear Urine Color Dark Yellow Yellow Urine Odor Strong Exam: looks well, non toxic, NAD Respiratory Respiratory exam: Present normal respiratory exam Cardiovascular Cardiovascular exam: Present normal rate and rhythm GI/Abdominal Additional comments: soft and minimally tender, trocar sites look good, drain is light serosang A/P Assessment and plan (1) Biliary colic: Assessment and plan: Severe Acute Cholecystitis post Lap Cholecystectomy Doing Well Advance diet Re check labs in AM prior, probable discharge tomorrow Status: Acute (2) Acute cholecystitis: Status: Acute Time Spent With Patient Time: Total time spent is greater than 50% in coordination of care (as documented) at patient's floor/unit and/or counseling patient:
[2022-09-20] MEDS: DEXTROSE 5%-1/2NS W/20MEQ KCL 1,000 ML IV SCH (05:25)
[2022-09-20] MEDS: PIPERACILLIN SODIUM/TAZOBACTAM 3.375 GM in DEXTROSE 5% IN WATER 50 ML IV SCH (06:15)
[2022-09-20 07:16] LABS: Hemoglobin 12.2 g/dL (13.7-17.5); Mean Cell Volume 89.8 fL (80.0-100.0); Mean Platelet Volume 12.8 fL (8.8-12.5); Platelet Count 183 K/mcL (140-440); RBC 4.12 M/mcL (4.63-6.08); Red Cell Distribution Width 15.3 % (11.5-14.5); WBC 9.2 K/mcL (4.5-11.0)
[2022-09-20] MEDS: PANTOPRAZOLE 40 MG VIAL IV SCH (07:24)
[2022-09-20 08:07] LABS: ALT/SGPT 155 U/L (<40); AST/SGOT 45 U/L (<40); Albumin 2.7 gm/dL (3.2-5.2); Albumin/Globulin Ratio 0.9 (1.0-2.3); Alkaline Phosphatase 208 U/L (39-117); Bilirubin,Total 1.2 mg/dL (0.1-1.0); Blood Urea Nitrogen 15 mg/dL (8-23); Calcium 7.9 mg/dL (8.6-10.4); Carbon Dioxide 21 mmol/L (22-30); Chloride 105 mmol/L (96-108); Globulin 3.1 gm/dL (2.2-3.7); Glomerular Filtration Rate 79; Glucose 111 mg/dL (70-105)
--- NOTE | 2022-09-20 10:45 | Operative Note ---
DATE OF OPERATION: 09/18/2022 PREOPERATIVE DIAGNOSIS: Acute cholecystitis. POSTOPERATIVE DIAGNOSIS: Acute cholecystitis. OPERATIVE PROCEDURE: Laparoscopic cholecystectomy. SURGEON: Warren Myrick M.D. ANESTHESIA: General. PREOPERATIVE MEDICATIONS: Zosyn 3.375 g IV. INDICATIONS FOR PROCEDURE: The patient is an 86-year-old male who was admitted to the hospital recently with increasing severity of right upper quadrant pain and discomfort. We saw him in consultation and agreed to admit him with plans to proceed to the operating room for laparoscopic cholecystectomy on this hospitalization after both CT, ultrasound, and ultimately MRCP demonstrated findings consistent with acute cholecystitis, but without any evidence of retained common duct stones or choledocholithiasis. Risks, benefits, potential complications, and alternative treatment options of the procedure were discussed with he and his family at length over the course of several discussions, and he wished to proceed. PROCEDURE IN DETAIL: The patient was taken to the OR and placed supine on the OR table, placed under general anesthesia and intubated. Bilateral SCDs were applied. All pressure sensitive areas were carefully padded. Arms were tucked at his side and the abdomen was widely prepped and draped in a sterile fashion. Procedure began with access of the peritoneal cavity utilizing a 0-degree, 5 mm scope through a Visiport in the right upper abdomen. Once pneumoperitoneum was obtained, insufflation was obtained with high-flow CO2 insufflation and the area of access was examined closely with a 0-degree scope to make sure there was no evidence of injury; none was seen. We then changed out the 0-degree scope to a 30-degree scope and placed our remaining trocars, which included an additional 5 mm right upper abdominal trocar, a 5 mm periumbilical trocar, and a 12 mm subxiphoid mid epigastric trocar. The camera was resited to the periumbilical site. We placed the patient in a reverse Trendelenburg position, airplaned towards the left side to facilitate exposure to the gallbladder. The gallbladder was visible in its usual location adjacent to the liver. It was obviously intensely inflamed and appeared to be quite distended. It could not be grasped without needle decompression, which we went ahead and did utilizing the needle suction device. The bile appeared to be somewhat purulent and likely the patient had impending empyema of the gallbladder. This softened the gallbladder enough for us to grasp it at the fundus and retract it towards the right shoulder and then gradually obtain exposure of the hepatocystic triangle. The infundibulum was not immediately evident, but we started our dissection high up on the posterolateral aspect of the gallbladder and then working posteriorly and anteriorly, we were able to eventually gradually identify the infundibulum and then fully dissect out the hepatocystic triangle. The cystic duct was thus identified as was the cystic artery. We obtained a critical view of safety and photodocumented this and then performed a very extensive cystic plate dissection to make sure there were no interposed structures in this area and none were seen. The bile duct could be seen down and away and was kept safely out of the field. Once we had obtained a very clear and broad critical view of safety with a complete posterior and anterior dissection of the hepatocystic triangle, the cystic artery was divided between clips utilizing cautery. We then transected the gallbladder at its junction point between the neck and the cystic duct with sequential firings of the 35 mm endovascular stapler without difficulty. The neck was then grasped and retracted towards the right shoulder and we very easily completed the remainder of the dissection as most of this had already been completed, and the gallbladder was removed in its entirety from the gallbladder fossa without difficulty. It was placed in an EndoCatch and removed through the right upper abdominal trocar site. The area was then extensively irrigated out given the need to perforate and decompress the gallbladder to obtain adequate exposure and retraction. I elected to bring a 19-[place] round Marty in from the more right upper abdominal trocar site. This was positioned and placed in the gallbladder dissection bed and secured in place with a 3-0 silk suture. We made sure there was no active bleeding or hemorrhage; none was seen, and the drain was secured in place as mentioned. We then irrigated out again and made sure there was no active bleeding or hemorrhage; none was seen. We removed the 12 mm trocar site and then closed this at the fascial level with interrupted 0 Vicryl suture utilizing the inlet fascial closure device. We then removed our remaining trocars under direct vision, and relieved pneumoperitoneum and closed the incisions with interrupted 3-0 Vicryl and 4-0 Monocryl sutures, respectively. Steri-Strips and sterile dressings were applied. The patient was awakened, extubated, and transferred to PACU in satisfactory condition. No apparent complications or issues. Sponge, needle and instrument counts were correct. Findings as discussed above. BW:edgard Job ID: [id number] Doc ID: [id number] Warren Myrick M.D.
--- NOTE | 2022-09-20 11:34 | General Surgery Progress Note ---
SUBJECTIVE Subjective Patient information: Note initiated : 09/20/22 at 11:32 am Service Date, if different from initiated Date: [] Patient: Bryant Mesa 86 y/o M admitted on 09/18/22. Chief Complaint: [] Feels well, tolerating diet, feels ok for discharge Constitutional Vitals: Vital Signs Temp Pulse Resp BP Pulse Ox O2 Del Method O2 Flow Rate 98.1 F 49 L 18 143/79 95 Room Air 1 09/20/22 10:51 09/20/22 10:51 09/20/22 10:51 09/20/22 10:51 09/20/22 10:51 09/20/22 10:51 09/18/22 16:00 Period Temp Pulse Resp BP Sys/Madrigal Pulse Ox O2 Del Method O2 Flow Rate Last 24 Hr 97.2 F-98.1 F 49-57 17-18 98-143/57-79 95-99 Room Air-Room Air Intake and Output 09/19/22 09/20/22 09/20/22 19:59 03:59 11:59 Intake Total 469 037 4015 Output Total 725 50 850 Balance -923 989 5054 Weight 177 lb 4.8 oz Intake & Output: Intake & Output 09/19/22 09/20/22 09/20/22 19:59 03:59 11:59 Intake Total 369 890 0728 Output Total 725 50 850 Balance -282 376 8506 Weight 177 lb 4.8 oz Intake: IV 331 20 0925 Dextrose 5%-1/2Ns W/20Meq KCl 1 525 1475 ,000 ml @ 75 mls/hr IV .[id number] [facility] Rx#:[id number] Zosyn 3.375 gm In Dextrose 5% 50 50 50 in Water 50 ml @ 100 mls/hr IV Q6H [facility] Rx#:[id number] Oral 150 480 Output: Drainage 75 50 Right RADHA Drain 75 50 Void Amount 650 0 850 # of times incontinent of urine 0 Other: Meal Dinner Breakfast Percent of Meal Consumed 75% 100% Feeding Ability Assist with Tray Set Up Urine Appearance Clear Clear Urine Color Dark Yellow Bright Yellow # Voids 0 Exam: looks well, non toxic, no distress Respiratory Respiratory exam: Present normal respiratory exam Cardiovascular Cardiovascular exam: Present normal rate and rhythm GI/Abdominal Additional comments: soft and non tender, non distended, drain benign and scant Extremities Exam Additional comments: well perfused A/P Assessment and plan (1) Acute cholecystitis: Assessment and plan: Post Lap Cholecystectomy Doing Well Home Today with drain removal prior to discharge Clinic follow up in 1-2 weeks Status: Acute Time Spent With Patient Time: Total time spent is greater than 50% in coordination of care (as documented) at patient's floor/unit and/or counseling patient:
--- NOTE | 2022-09-20 16:11 | EKG ---
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
--- NOTE | 2022-09-24 09:16 | Discharge Summary ---
DATE OF ADMISSION: 09/18/2022 DATE OF DISCHARGE: 09/20/2022 DATE OF ADMISSION: 09/16/2022 DATE OF DISCHARGE: 09/20/2022 ADMITTING PHYSICIAN: Warren Myrick M.D. DISCHARGING PHYSICIAN: Warren Myrick M.D. ADMITTING DIAGNOSIS: Acute cholecystitis. DISCHARGE DIAGNOSIS: Acute cholecystitis. INDICATIONS FOR ADMISSION AND HOSPITAL COURSE: The patient is an 86-year-old male who presented to the emergency room late on 09/16/2022 and was seen late that evening with findings consistent with [id number] cholecystitis. He related a history of pain and discomfort for many years with known gallstones that he elected to not have taken care of surgically for a number of reasons and had done relatively well managing pain and discomfort over the years. More recently, he developed a severe bout of discomfort that did not resolve or get better and so he presented to the emergency room accompanied by family. He was admitted to the hospital with a diagnosis of acute cholecystitis and recommendations for surgery. He was taken to the OR for laparoscopic cholecystectomy on 09/18/2022 after a period of time with IV antibiotics and fluid resuscitation and optimization of the OR schedule. The surgery went well and the details of this can be found in a separately-dictated operative report. Following that, he recovered very nicely and was felt ready for discharge on 09/20/2022, feeling well, tolerating a regular diet, excellent pain control with oral pain medications, and ready for discharge and wanted to go home. DISPOSITION: Discharged home with clinic followup. IN-HOSPITAL PROCEDURES: Laparoscopic cholecystectomy on 09/18/2022. IN-HOSPITAL COMPLICATIONS: None. BW:edgard Job ID: [id number] Doc ID: [id number] Warren Myrick M.D.
== END 2022-09-20 12:31 | disposition home or self-care (01) | DRG 419 ==
LOC: MEDSUR 14:37 → ED 14:37 → MEDSUR 22:50
PROVIDERS: ADMIT Surgery Surgical Critical Care; ATTEND Surgery Surgical Critical Care